=== PATIENT | male | born 1975 | race Caucasian/White ===

== ENCOUNTER 2017-01-24 07:19 | Emergency (ER) | payer OTHER | END 2017-01-24 09:46 | disposition home or self-care (01) | LOC: FER 07:19 | DX: R51 Headache (principal); M54.2 Cervicalgia; R09.89 Other specified symptoms and signs involving the circulatory and respiratory systems; I10 Essential (primary) hypertension; F17.210 Nicotine dependence, cigarettes, uncomplicated; Z98.890 Other specified postprocedural states; Z79.899 Other long term (current) drug therapy | CPT/HCPCS: J1100; J1885 ==